=== PATIENT | male | born 1940 | race Native Hawaiian/Other Pacific Islander ===

== ENCOUNTER 2020-05-15 14:50 | Outpatient (CLI) | payer OTHER ==
[2020-05-15 15:35] LABS: PLATELET COUNT 326 K/uL (142-355)
== END 2020-05-15 19:44 | disposition home or self-care (01) ==
LOC: LAB 14:50
PROVIDERS: ATTEND Nurse Practitioner Family
DX: Z00.00 Encounter for general adult medical examination without abnormal findings (principal); I10 Essential (primary) hypertension; J98.4 Other disorders of lung; F32.9 Major depressive disorder, single episode, unspecified; E55.9 Vitamin D deficiency, unspecified; R00.2 Palpitations; Z79.899 Other long term (current) drug therapy; R53.83 Other fatigue; E53.8 Deficiency of other specified B group vitamins; R97.20 Elevated prostate specific antigen [PSA]
CPT/HCPCS: 80053; 80061; 82306; 82607; 83036; 84153; 84439; 84443; 85027

== ENCOUNTER 2020-09-03 11:21 | Outpatient (CLI) | payer OTHER | END 2020-09-03 19:23 | disposition home or self-care (01) | LOC: LAB 11:21 | PROVIDERS: ATTEND Family Medicine | DX: Z00.00 Encounter for general adult medical examination without abnormal findings (principal); I10 Essential (primary) hypertension; E78.49 Other hyperlipidemia; E55.9 Vitamin D deficiency, unspecified; R97.20 Elevated prostate specific antigen [PSA]; N52.8 Other male erectile dysfunction; J98.4 Other disorders of lung; F32.9 Major depressive disorder, single episode, unspecified; R53.83 Other fatigue; R53.81 Other malaise; Z79.899 Other long term (current) drug therapy | CPT/HCPCS: 84153 ==